=== PATIENT | male | born 1960 | race Caucasian/White ===

== ENCOUNTER 2016-07-27 11:12 | Emergency (ER) ==
[2016-07-27 11:12] VITALS: BMI 35.4
[2016-07-27 11:17] VITALS: TEMP 99
--- NOTE | 2016-07-27 11:36 | ED.PDOC ---
General ED Provider: Dr. VEDA CRUZ JR Chief Complaint: Extremity Pain/Injury Stated Complaint: patient states he was pressing on gas pedal and felt a pop in right thigh and has had pain since.[ End ] 99 66 16 99% 172/90 11/30. pain med per pain management Time Seen by Physician: 11:32 Mode of Arrival: Walk-In Information Source: Patient Exam Limitations: No limitations [facility] T[facility] Documentation Reviewed and Agree: No Review of Systems - Review Of Systems Constitutional: Reports: No symptoms Eyes: Reports: No symptoms Ears, Nose, Mouth, Throat: Reports: No symptoms Respiratory: Reports: No symptoms Cardiac: Reports: No symptoms GI: Reports: No symptoms : Reports: No symptoms Musculoskeletal: Reports: Back pain, Joint pain, Muscle pain Skin: Reports: No symptoms Neurological: Reports: No symptoms Endocrine: Reports: No symptoms Hematologic/Lymphatic: Reports: No symptoms All Other Systems: Other Past Medical History - Past Medical History Endocrine: Reports: None Cardiovascular: Reports: Hypertension, Other ( enlarged heart ) Respiratory: Reports: None Hematological: Reports: None Gastrointestinal: Reports: None Genitourinary: Reports: None Neuro/Psych: Reports: None Musculoskeletal: Reports: None Cancer: Reports: None - Surgical History General Surgical History: Reports: Orthopedic (right hip replacement september 09, 2013;), Back Surgery - Family History Family History: Reports: Unknown - Social History Smoking Status: Never smoker Hx Substance Use: No Alcohol Screening: None Physical Exam - Physical Exam Appearance: Well-appearing, Obese Pain Distress: Moderate Eyes: CIPRIANO, EOMI, Conjunctiva clear ENT: Ears normal, Nose normal, Oropharynx normal Neck: Supple Respiratory: Airway patent, Breath sounds clear, Breath sounds equal, Respirations nonlabored Cardiovascular: RRR, Pulses normal, No rub, No murmur GI/: Soft, Nontender, No masses, Bowel sounds normal, No Organomegaly Musculoskeletal: Normal strength, ROM intact, No edema, No calf tenderness ( tender mid femur and medial vastus of quadraceps) Skin: Warm, Dry, Normal color Neurological: Sensation intact, Motor intact, Reflexes intact, Cranial nerves intact, Alert, Oriented Psychiatric: Affect appropriate, Mood appropriate Critical Care Note - Critical Care Note Total Time (mins): 0 Course - Course Orders, Labs, Meds: Orders Category Date Time Status FEMUR, RIGHT 2 VIEWS Stat RADS 07/27/16 11:35 Taken Vital Signs: Temp Pulse Resp BP Pulse Ox 07/27/16 11:13 99 F 66 16 172/90 H 99 Departure - Departure Time of Disposition: 12:35 Disposition: HOME SELF-CARE Discharge Problem: Quadriceps muscle strain Qualifiers: Encounter type: initial encounter Laterality: right Qualifier Code: (S76.111A) Strain of right quadriceps muscle, fascia and tendon, initial encounter Instructions: Muscle Strain (ED), Groin Strain (ED) Condition: Good Pt referred to PMD for follow-up: Yes Additional Instructions: muscle relaxer; pain med as prescribed avoid heavy lifting avoid excess walking follow up with PMD next week consider second opinion if hip replacement is still painful recheck blood pressure next week Prescriptions: Cyclobenzaprine HCl [Flexeril] 5 mg PO TID PRN #30 tablet PRN Reason: Spasms Allergies/Adverse Reactions: Allergies codeine [Codeine] Adverse Reaction (Unverified 07/27/16 11:18) BREAKS OUT IN SWEAT AND GETS DISORIENTED Home Medications: Ambulatory Orders Olmesartan/Hydrochlorothiazide [Benicar Hct 40-12.5 mg Tablet] 1 each PO DAILY 11/26/12 Omeprazole [Prilosec] 20 mg PO ONCE 11/26/12 Aspirin [Aspirin Ec] 81 mg PO DAILY 01/26/15 [place]-3 Acid Ethyl Esters 1 gm PO BID 01/26/15 Oxycodone HCl/Acetaminophen [Oxycodon-Acetaminophen 7.5-325] 1 each PO TID 08/21 Amitriptyline HCl 25 mg PO BEDTIME 07/27/16 Amlodipine Besylate 10 mg PO DAILY 07/27/16 Cyclobenzaprine HCl [Flexeril] 5 mg PO TID PRN #30 tablet 07/27/16 Metformin HCl [Fortamet] 500 mg PO BID 07/27/16
--- NOTE | 2016-07-27 12:29 | DI ---
EXAM: Four views of the right femur. HISTORY: Acute pain, mid femur tenderness COMPARISONS: 05/23/2015. FINDINGS: Lucency at the lateral aspect of the femoral prosthesis appears similar. Operative change s of right total hip arthroplasty is again seen. No evidence of acute fracture or dislocation. The re is mild joint space narrowing and osteophytosis at the medial compartment of the knee. No eviden ce of subcutaneous gas is seen. IMPRESSION: 1. Right total hip arthroplasty with similar lucency along the lateral aspect of the femoral prosth esis. 2. No acute fracture. 3. Mild right knee osteoarthritis.
[2016-07-27 12:53] VITALS: BP 147/91
== END 2016-07-27 12:54 | disposition home or self-care (01) ==
LOC: ED 11:12
DX: S76.111A Strain of right quadriceps muscle, fascia and tendon, initial encounter (principal); I10 Essential (primary) hypertension; X50.9XXA Other and unspecified overexertion or strenuous movements or postures, initial encounter
CPT/HCPCS: 99283

== ENCOUNTER 2016-11-27 11:18 | Outpatient (CLI) ==
[2012-11-27 19:31] VITALS: TEMP 97.7
--- NOTE | 2016-11-27 12:58 | DI ---
Exam: Two x-rays of the chest. Comparison: 09/06/2015. Reason for exam: Cough. FINDINGS: No pneumothorax, pleural effusion, or focal consolidation. The cardiac silhouette is unchanged. Th ere is similar appearing mild consolidation changes in the left lower lobe with blunting of the cost ophrenic angle. The osseous structures are unremarkable without acute fracture. Impression: Similar appearing left basilar atelectasis.
== END 2016-11-27 11:19 | disposition home or self-care (01) ==
LOC: RAD 11:18
PROVIDERS: ATTEND General Practice
DX: R05 Cough (principal)

== ENCOUNTER 2017-06-26 08:48 | Emergency (ER) ==
[2017-06-26 08:59] VITALS: BP 160/85; TEMP 99.8; BMI 37.0
--- NOTE | 2017-06-26 09:36 | ED.PDOC ---
General ED Provider: Dr. RHODA MCKEON Chief Complaint: Respiratory Complaint Stated Complaint: Coughing. Fever and chills with low grade temperature Time Seen by Physician: 09:20 Mode of Arrival: Walk-In Information Source: Patient Exam Limitations: No limitations [facility] Nursing and Triage Documentation Reviewed and Agree: Yes Reviewed sepsis parameters & appropriate labs ordered?: Yes System Inflammatory Response Syndrome: Not Applicable Sepsis Protocol: For patient's 13 years and over: Temp is 96.8 and below OR 101 and greater Pulse >90 BPM Resp >20/minute Acutely Altered Mental Status Are patient's symptoms suggestive of a new infection, such as: -Pneumonia -Skin, Soft Tissue -Endocarditis -UTI -Bone, Joint Infection -Implantable Device -Acute Abdominal Infection -Wound Infection -Meningitis -Blood Stream Catheter Infection -Unknown Respiratory Complaint Exam - Respiratory Complaint/Exam Onset/Duration: Initial onset 2 weeks-cleared then recurrent onset 2 days ago with cough Symptoms Are: Still present Timing: Constant Initial Severity: Moderate Current Severity: Moderate Location: Chest Character: Reports: Non-productive cough Aggravating: Reports: None Alleviating: Reports: Upright position Associated Signs and Symptoms: Reports: Chills, Chest pain (Lt upper Chest wall discomfort from coughing). Denies: Rapid breathing, Dyspnea, Pleuritic chest pain, Wheezing, Hemoptysis, Dizziness, Calf pain, Calf swelling, Edema, Nasal congestion, Hoarseness, Sinus discomfort, Vomiting, Sore throat, Decreased oral intake, Increased thirst, Increased appetite, Increased urination Related History: Reports: Similar episode History of Healthcare-Acquired Pneumonia: No Related Surgical History: Reports: None Pulmonary Embolism Risk Factors: None Cardiac Risk Factors: Reports: Elevated lipids, Hypertension, Family History ( Has hx enlarged heart and rapid heart beat.). Denies: Prior [place], CAD, Smoking, Diabetes, CHF Pseudomonas Risk Factors: Reports: None Tuberculosis Risk Factors: Reports: None Status Asthmaticus Risk Factors: Reports: None Home Oxygen Use: No Recent Stress Test: No Recent Echo/LV Function: No Current Antibiotic Use: No Current Asthma Medication Use: No Respiratory Distress: None Inadequate Respiratory Effort: No Dysphagia Present: No Stridor Present: No JVD Present: No Review of Systems - Review Of Systems Constitutional: Reports: Chills, Weakness. Denies: Sweats, Loss of appetite Eyes: Reports: No symptoms Ears, Nose, Mouth, Throat: Reports: No symptoms Respiratory: Reports: Cough. Denies: Short of air, Stridor, Wheezing Cardiac: Reports: Chest pain, Palpitations. Denies: Edema, Irregular heart rate , Lightheadedness, Syncope GI: Reports: No symptoms : Reports: No symptoms Musculoskeletal: Reports: Back pain Skin: Reports: No symptoms Neurological: Reports: No symptoms Endocrine: Reports: No symptoms Hematologic/Lymphatic: Reports: No symptoms All Other Systems: Reviewed and Negative Past Medical History - Past Medical History Endocrine: Reports: None Cardiovascular: Reports: Hypertension, Other ( enlarged heart ) Respiratory: Reports: None Hematological: Reports: None Gastrointestinal: Reports: None Genitourinary: Reports: None Neuro/Psych: Reports: None Musculoskeletal: Reports: None Cancer: Reports: None - Surgical History General Surgical History: Reports: Orthopedic (right hip replacement september 09, 2013;), Back Surgery - Family History Family History: Reports: Unknown - Social History Smoking Status: Never smoker Hx Substance Use: No Alcohol Screening: None Physical Exam - Physical Exam Appearance: Well-appearing, No pain distress, Well-nourished, Obese Ill-appearing: Mild Eyes: CIPRIANO, EOMI, Conjunctiva clear, Conjunctiva inflammed ENT: Ears normal, Nose normal, Oropharynx normal Neck: Supple Respiratory: Airway patent, Breath sounds equal, Breath sounds diminished (Lt side chest with inspiratory coarse wheezing), Respirations nonlabored, Wheezes Cardiovascular: RRR, Pulses normal, No rub, No murmur GI/: Soft, Nontender, No masses, Bowel sounds normal, No Organomegaly Musculoskeletal: Normal strength, ROM intact, No edema, No calf tenderness Skin: Warm, Dry, Normal color Neurological: Sensation intact, Motor intact Psychiatric: Affect appropriate, Mood appropriate Critical Care Note - Critical Care Note Total Time (mins): 0 Course - Course Hematology/Chemistry: 06/26/17 09:55 06/26/17 09:55 Orders, Labs, Meds: Lab Review 06/26/17 06/26/17 06/26/17 09:25 09:55 09:55 WBC 4.90 RBC 4.64 L Hgb 14.1 Hct 39.7 L MCV 85.6 MCH 30.4 MCHC 35.5 H RDW Coeff of Adriane 13.7 Plt Count 150 Immature Gran % (Auto) 0.4 Neut % (Auto) 70.7 Lymph % (Auto) 11.6 [place] % (Auto) 14.7 H Eos % (Auto) 1.8 Baso % (Auto) 0.8 Immature Gran # (Auto) 0.0 Neut # 3.5 Lymph # 0.6 [place] # 0.7 Eos # 0.1 Baso # 0.0 Sodium 137 Potassium 3.9 Chloride 105 Carbon Dioxide 27 Anion Gap 8.9 BUN 13 Creatinine 0.79 Estimated GFR (MDRD) 101.00 BUN/Creatinine Ratio 16.45 Glucose 115 H Calcium 8.9 Total Bilirubin 0.4 AST 33 ALT 35 Alkaline Phosphatase 65 Total Protein 6.5 Albumin 3.5 Globulin 3.0 Albumin/Globulin Ratio 1.17 Influenza A (Rapid) Positive by naat H Influenza B (Rapid) Negative by naat Orders Category Date Time Status EKG-(ED ONLY) Stat CARDIO 06/26/17 09:43 Completed CBC W/ AUTO DIFF Stat LAB 06/26/17 09:55 Completed COMPREHENSIVE METABOLIC PANEL Stat LAB 06/26/17 09:55 Completed FLU A & B RAPID TEST [MOLECULAR FLU A/B] Stat LAB 06/26/17 09:25 Completed Acetaminophen [Tylenol] MEDS 06/26/17 09:53 Discontinued 325 mg PO ONCE STA CHEST, 2 VIEWS PA & LAT Stat RADS 06/26/17 09:43 Completed Medications Discontinued Medications Generic Name Dose Route Start Last Admin Trade Name Freq PRN Reason Stop Dose Admin Acetaminophen 325 mg 06/26/17 09:53 06/26/17 10:00 Tylenol PO 06/26/17 09:54 325 mg ONCE STA Administration Vital Signs: Temp Pulse Resp BP Pulse Ox 06/26/17 08:49 99.8 F H 82 20 160/85 H 95 Departure - Departure Time of Disposition: 11:00 Disposition: HOME SELF-CARE Discharge Problem: Influenza A Instructions: Influenza (ED) Condition: Good Pt referred to PMD for follow-up: Yes (1 week-10days) Additional Instructions: Take meds as directed Stay well hydrated Follow up with PCP in 7-10 days May take Tylenol 325 mg 2 every 4-6 hrs for pain Allergies/Adverse Reactions: Allergies codeine [Codeine] Adverse Reaction (Verified 06/26/17 08:58) BREAKS OUT IN SWEAT AND GETS DISORIENTED Home Medications: Ambulatory Orders Olmesartan/Hydrochlorothiazide [Benicar Hct 40-12.5 mg Tablet] 1 each PO DAILY 11/26/12 Omeprazole [Prilosec] 20 mg PO ONCE 11/26/12 Aspirin [Aspirin Ec] 81 mg PO DAILY 01/26/15 Oxycodone HCl/Acetaminophen [Oxycodon-Acetaminophen 7.5-325] 1 each PO TID 08/21 Amitriptyline HCl 25 mg PO BEDTIME 07/27/16 Amlodipine Besylate 10 mg PO DAILY 07/27/16 Metformin HCl [Fortamet] 500 mg PO BID 07/27/16 Oseltamivir Phosphate [Tamiflu] 75 mg PO Q12HR 5 Days #10 capsule 06/26/17
[2017-06-26] MEDS ORDERED: TYLENOL PO STA (09:53)
--- NOTE | 2017-06-26 10:29 | DI ---
EXAM: Chest two views HISTORY: Chest congestion COMPARISON: 11/27/2016 TECHNIQUE: Two views of the chest were performed FINDINGS: No airspace consolidation. Chronic blunting left angle likely pleural parenchymal scarrin g. No definite pleural effusion. No visible pneumothorax. The heart is normal in size. The medias tinal contour is normal. There are no acute abnormalities of the bones. IMPRESSION: No acute cardiopulmonary process.
== END 2017-06-26 11:05 | disposition home or self-care (01) ==
LOC: ED 08:48
DX: J09.X2 Influenza due to identified novel influenza A virus with other respiratory manifestations (principal); E78.5 Hyperlipidemia, unspecified; I10 Essential (primary) hypertension; I25.2 Old myocardial infarction; I25.10 Atherosclerotic heart disease of native coronary artery without angina pectoris; I50.9 Heart failure, unspecified; F17.210 Nicotine dependence, cigarettes, uncomplicated; E11.9 Type 2 diabetes mellitus without complications
CPT/HCPCS: 36415; 80053; 85025; 87502; 93005; 93010; 99283

== ENCOUNTER 2018-11-11 08:19 | Outpatient (CLI) ==
[2012-11-27 19:31] VITALS: TEMP 97.7
--- NOTE | 2018-11-11 09:02 | DI ---
EXAM: Two views of the right hip. History: Right hip pain. Comparison: Right hip radiograph 05/23/2015 Findings: No acute fracture or dislocation. Grossly intact and stable right total hip arthroplasty hardware. Partially visualized postsurgical changes of the lumbosacral spine. Impression: No acute osseous abnormality
== END 2018-11-11 08:20 | disposition home or self-care (01) ==
LOC: RAD 08:19
PROVIDERS: ATTEND Pain Medicine Interventional Pain Medicine
DX: M16.0 Bilateral primary osteoarthritis of hip (principal)

== ENCOUNTER 2018-11-27 09:38 | Outpatient (CLI) ==
[2012-11-27 19:31] VITALS: TEMP 97.7
--- NOTE | 2018-11-27 11:26 | CT ---
EXAM: CT of the cervical spine without contrast History: Cervical radiculopathy. Technique: Multiplanar CT images through the cervical spine were obtained without the administration of IV contrast Findings: The visualized upper lungs are clear. The visualized airway remains patent. No acute fracture or subluxation of the cervical spine. No prevertebral soft tissue swelling. Prede ntal space is not widened. Moderate to severe disc space narrowing at C4-5 with endplate sclerosis a nd osteophyte formation. C2-3: No significant bony central canal stenosis. Mild to moderate left bony neural foraminal narro wing secondary to uncovertebral and facet hypertrophy. C3-4: No significant bony central canal stenosis. Moderate bilateral left greater than right bony n eural foraminal narrowing secondary to uncovertebral and facet hypertrophy. C4-5: Posterior disc osteophyte complex with mild bony central canal stenosis. Severe left greater than right bilateral bony neural foraminal narrowing secondary to uncovertebral and facet hypertrophy . C5-6: No significant bony central canal stenosis or bony neural foraminal narrowing. C6-7: No significant bony central canal stenosis or bony neural foraminal narrowing. Impression: 1. No acute osseous abnormality of the cervical spine. 2. Degenerative changes with level by level analysis as detailed above and most significant at C4-5
--- NOTE | 2018-11-27 11:39 | CT ---
EXAM: CT of the right hip without contrast History: Right hip pain. Comparison: CT lumbar spine 11/27/2018, right hip radiograph 11/11/2018 Technique: Multiplanar CT images through the right hip were obtained without the administration of I V contrast Findings: No acute fracture or dislocation. Right hip arthroplasty is intact without evidence for l oosening. Surrounding soft tissues demonstrate no acute findings. 3 mm metallic structure seen with in the subcutaneous soft tissues of the anterior upper thigh. Impression: No acute abnormality and intact hardware
--- NOTE | 2018-11-27 11:39 | CT ---
Examination: Lumbar spine CT without contrast Clinical history: Back and hip pain. Cervical radiculopathy. Detailed thin slice axial images were initially performed extending from the thoracic level through t he lower sacrum. Reformatted 2-D coronal and sagittal images were reviewed. On sagittal examination . There is no significant loss of lumbar vertebral height. There is disc space narrowing. A mild d egree at L4-L5. There is rather marked anterolisthesis of L5 in relation to S1 with marked disc dege neration. Patient has undergone prior lumbar fusion surgery extending from L4-S1. There is bilatera l sacroiliac joint degenerative disease. T12-L1: Posterior disc margin is smooth. Cord caliber appears satisfactory. No neural foramen narr owing. L1-L2: Posterior disc margin is well-defined. AP diameter of the thecal sac is 1.5 cm. No neural fo ramen narrowing. Facet alignment is intact. Anterior spondylosis noted at L2. L2-L3: Broad-based annular bulging flattens the anterior thecal sac. AP sac diameter at the disc le hortensia is 11 mm. There is no displacement of the exiting L2 nerve roots. There is mild bilateral neura l foramen narrowing. Right facet degeneration. L3-L4: There is minimal annular bulging. Central canal appears intact. No exiting L3 nerve root di splacement. Posterior laminar and spinous process resection has been accomplished. Transpedicle scr ews extend into the L4 vertebra. L4-L5: A left paramedian intervertebral spacer is identified. There is no osseous central canal bibi rowing. No displacement of the exiting L4 nerve roots. L5-S1: An old screw tract is noted on the right through the L5 pedicle. Posterior fusion material a ppears intact. The neural foramen are difficult to delineate due to the angle of imaging. The S1 tr anspedicle screws are intact. There is no osseous narrowing of the sacral foramina. On the sagittal views. There is mild to moderate bilateral neural foramen narrowing. There may have been some bone harvest from the midline sacrum. Impression: 1. L four - chest one PLIF 2. Marked anterolisthesis of L5 in relation S1. 3. No acute fracture. 4. Broad-based annular bulging at L2-L3. Mild bilateral neural foramen narrowing. 5. Mild annular bulging at L3-L4. 6. At least moderate bilateral neural foramen narrowing at L5-S1.
== END 2018-11-27 09:39 | disposition home or self-care (01) ==
LOC: RAD 09:38
PROVIDERS: ATTEND Internal Medicine
DX: M54.2 Cervicalgia (principal); M54.12 Radiculopathy, cervical region; M54.9 Dorsalgia, unspecified